=== PATIENT | female | born 2000 | race Two or more races ===

== ENCOUNTER 2021-04-11 09:35 | Emergency (ER) | payer OTHER, SELFPAY ==
[~2021-04-11] VITALS: Ht 177.8 cm; Wt 63.0 kg
--- NOTE | 2021-04-11 10:13 | NUR ---
COUGH FEVER CHILLS X 2 DAYS NADN WARM BLANKETS GIVEN
[2021-04-11] MEDS ORDERED: ACETAMINOPHEN 500 MG TABLET PO ONE (11:00)
[2021-04-11] MEDS ORDERED: IBUPROFEN 600 MG TABLET PO ONE (11:00)
[2021-04-11] MEDS ORDERED: IBUPROFEN 600 MG TABLET ONE (11:28)
[2021-04-11] MEDS ORDERED: ACETAMINOPHEN 500 MG TABLET ONE (11:29)
[2021-04-11 12:06] VITALS: BP 110/62
== END 2021-04-11 12:53 | disposition home or self-care (01) ==
LOC: ED 10:10
DX: J06.9 Acute upper respiratory infection, unspecified (principal); Z20.822 Contact with and (suspected) exposure to COVID-19
CPT/HCPCS: 71045; 99284; U0003; U0005